=== PATIENT | female | born 1940 | race Caucasian/White ===

== ENCOUNTER → 2019-11-10 | Outpatient (CLI) | payer OTHER ==
[~2019-11-10] MED LIST: CELEXA 10 MG TA10 M1 PO; DILTIAZEM 24HR240 M1 PO; FUROSEMIDE 40 M40 MG PO; IRON325 M1 PO; JAKAFI10 MG PO; LORATIDINE 10 M10 M1 PO; MIRTAZAPINE7.5 MG PO; TOPROL XL25 MG PO; XARELTO15 MG PO; ZYLOPRIM300 MG PO
[2019-11-10 10:54] VITALS: BP 124/76; BP 126/66
[2019-11-10 13:20] VITALS: BP 114/60; BP 118/68; BP 126/66
--- NOTE | 2019-11-10 15:38 | NUR ---
IN FOR BLOOD TRANSFUSION FOR HGB 6.6 WITH SEVERE FATIGUE. ADMISSION HISTORY AND ASSESSMENT COMPLETED. MEDICATION RECONCILED. T&C DONE. TRANSFUSED 2 UNITS A POS LPPC'S AND TOLERATED WELL WITH NO ADVERSE REACTION NOTED. DTR KRISHNA WITH PATIENT. REMOVED IV AND DISMISSED IN STABLE CONDITION.
== END ==
LOC: OPONC 08:30
DX: D47.3 Essential (hemorrhagic) thrombocythemia (principal); D64.9 Anemia, unspecified
CPT/HCPCS: 91030